=== PATIENT | male | born 1960 | race Two or more races ===

== ENCOUNTER 2025-08-04 10:12 | Outpatient (CLI) | payer MEDICARE ==
[~2025-08-04 10:12] MED LIST: DICLOFENAC; MELOPOW; OXYCODONE HCL 15 MG TABLET
[2025-08-04 10:50] LABS: Hematocrit 46.5 % (41.0-53.0); Hemoglobin 15.9 g/dL (13.5-17.5); Mean Corpuscular Hemoglobin 32.4 pg (28.0-32.0); Mean Corpuscular Volume 94.7 fL (80.0-100.0); Nucleated Red Blood Cells % 0.0 %
[2025-08-04 11:03] LABS: Urine Protein, UAD Negative (Negative)
[2025-08-04 11:11] LABS: Alanine Aminotransferase 15 U/L (7-40); Albumin 4.7 g/dL (3.2-4.8); Alkaline Phosphatase 142 U/L (46-116); Anion Gap 9 (5-15); BUN/Creatinine Ratio 7.8 (10.0-20.0); Bilirubin, Total 0.3 mg/dL (0.2-1.0); Blood Urea Nitrogen 7 mg/dL (9-23); Calcium 10.0 mg/dL (8.7-10.4); Carbon Dioxide 28 mmol/L (20-31); Chloride 103 mmol/L (98-107); Cholesterol 274 mg/dL (< 200); Glucose 111 mg/dL (74-106); HDL Cholesterol 41 mg/dL (40-59); Potassium 4.1 mmol/L (3.5-5.1); Sodium 140 mmol/L (136-145); Total Protein 7.9 g/dL (5.7-8.2); Triglycerides 211 mg/dL (< 150)
== END 2025-08-04 17:00 | disposition home or self-care (01) ==
LOC: LAB 10:12
PROVIDERS: ATTEND Nurse Practitioner
DX: R35.1 Nocturia (principal); I10 Essential (primary) hypertension; E78.5 Hyperlipidemia, unspecified; R73.9 Hyperglycemia, unspecified
CPT/HCPCS: 36415; 80053; 80061; 81001; 83036; 84153; 84443; 85025